=== PATIENT | male | born 1950 | race Caucasian/White ===

== ENCOUNTER 2023-01-30 09:42 | Outpatient (CLI) | payer OTHER ==
[2023-01-30] MEDS ORDERED: CYSTOGRAFIN 300 ML INFUS..BTL UR ONE (10:35)
== END 2023-01-30 19:15 | disposition home or self-care (01) ==
LOC: SRD 09:42
PROVIDERS: ATTEND Urology Pediatric Urology
DX: C61 Malignant neoplasm of prostate (principal)
CPT/HCPCS: 74430; 51600; Q9958